=== PATIENT | male | born 1965 | race Caucasian/White ===

== ENCOUNTER 2021-10-07 15:34 | Emergency (ER) | payer BC | END 2021-10-07 16:23 | disposition home or self-care (01) | LOC: ER1 15:34 | DX: S43.101A Unspecified dislocation of right acromioclavicular joint, initial encounter (principal); S40.811A Abrasion of right upper arm, initial encounter; W18.40XA Slipping, tripping and stumbling without falling, unspecified, initial encounter | CPT/HCPCS: 73030; 99283 ==